=== PATIENT | female | born 2000 | race Two or more races ===

== ENCOUNTER 2024-01-15 05:29 | Emergency (ER) | payer OTHER ==
[~2024-01-15] VITALS: Ht 147.3 cm; Wt 98.4 kg
[2024-01-15] MEDS ORDERED: FAMOTIDINE/PF 20 MG in 0.9 % SODIUM CHLORIDE 8 ML IV PUSH STA (05:52)
[2024-01-15] MEDS ORDERED: ONDANSETRON HCL 2 MG/ML VIAL IV ONE (06:00)
[2024-01-15 06:41] LABS: HEMATOCRIT 39.7 % (36.0-45.00); HEMOGLOBIN 13.5 g/dL (12.0-15.00); MEAN CELL VOLUME 89.4 fL (80.00-100.00); MEAN CORPUSCULAR HEMOGLOBIN 30.4 pg (27.00-32.0); PLATELET COUNT 157 K/uL (150-450); RED BLOOD COUNT 4.44 M/uL (4.00-6.00); RED CELL DISTRIBUTION WIDTH 14.5 % (11.5-14.5)
[2024-01-15] MEDS ORDERED: TUSNEL LIQUID178 ML PO (07:26)
[2024-01-15] MEDS ORDERED: IVERMECTIN3 MG PO (07:26)
[2024-01-15] MEDS ORDERED: OSEL75CA PO (07:26)
== END 2024-01-15 07:34 | disposition home or self-care (01) ==
LOC: ER 05:29
PROVIDERS: General Practice
DX: J10.1 Influenza due to other identified influenza virus with other respiratory manifestations (principal); R11.10 Vomiting, unspecified; R11.0 Nausea; B86 Scabies; Z20.822 Contact with and (suspected) exposure to COVID-19